=== PATIENT | male | born 1965 | race Caucasian/White ===

== ENCOUNTER 2020-11-28 11:20 | Emergency (ER) | payer OTHER, SELFPAY ==
--- NOTE | ~2020-11-28 | XR_ITS ---
EXAMINATION: XR chest 1V portable EXAM DATE: 11/28/2020 12:40 INDICATION: Shortness of breath. TECHNIQUE: Portable AP frontal chest x-ray was obtained. There is no prior study for comparison. FINDINGS: Small amount of ill-defined bilateral mid lung zone acute airspace disease suspected. Recom mend considering COVID pneumonia given community prevalence. No pneumothorax or pleural effusion. Car diomediastinal silhouette is normal. Patient has diffuse idiopathic skeletal hyperostosis (DISH). IMPRESSION: Suspect small amount of ill-defined acute airspace disease, clinical correlation for poss ible COVID pneumonia. Reviewed, dictated and finalized at location B. IAGE SETTER IMPRESSION: Suspect small amount of ill-defined acute airspace disease, clinica l correlation for possible COVID pneumonia.
[2020-11-28 11:31] VITALS: BP 135/78; PULSE 74; RESP 12; TEMP 36.8; O2SAT 97
[2020-11-28] MEDS: SODIUM CHLORIDE 0.9% IV 1,000 ML 999 ML IV CONT (11:56)
[2020-11-28 11:58] LABS: Alveolar/Arterial O2 Gradient 41.4 mmHg; Base Excess ABG 0.1 mEq/l (+/-2.0); Carboxyhemoglobin 0.5 % THb (0-2.0); Fractional Inspired Oxygen 21 %; HCO3 ABG 22.9 mEq/l (22.0-26.0); Methemoglobin ABG 0.2 %THb (0-1.5); Oxygen Content ABG 18.5 %vol (16.0-22.0); Oxygen Saturation ABG 95.2 % (95.0-100.0); Oxyhemoglobin 93.8 % THb (90.0-100.0); PO2 FiO2 Ratio Arterial Blood 3.33 %; Reduced Hemoglobin 5.5 %THb (0-5.0); pH ABG 7.473 (7.350-7.450)
[2020-11-28 11:59] LABS: Device ROOM AIR; Modified Allen's Test Pass; Site Drawn RIGHT RADIAL
--- NOTE | 2020-11-28 12:03 | WPDEDEXPGENP ---
HPI - General Ped General Chief complaint: Fever Stated complaint: covid+, wants checked out Time Seen by Provider: 11/28/20 11:28 Source: patient Mode of arrival: ambulatory Limitations: no limitations Nursing Documentation: reviewed/agree History of Present Illness HPI narrative: Patient is a 55-year-old male who presents to emergency department for evaluation of fatigue nonproductive cough and fevers with positive Covid testing on the 18 patient notes that his family members of all improved and that he is the only one that remains ill patient. Patient notes a couple loose stools but denies any vomiting patient denies chest pain patient was concerned that he had a low reading on his pulse oximeter at home. On arrival patient does not appear to be uncomfortable or distressed Related Data Allergies Allergy/AdvReac Type Severity Reaction Status Date / Time No Known Allergies Allergy Verified 11/28/20 11:35 Pediatric Review of Systems : All systems ED: reviewed and negative except as stated PMFSH Past Medical History Medical History COVID-19 Obesity (BMI 30.0-34.9) Tear of medial meniscus of right knee Social History Social History Smoking status: Never smoker Gender identity (if verbalized by the patient): Male Pediatric Exam Narrative: Physical exam: GENERAL: Well-appearing, well-nourished, and in no acute distress. HEAD: Normocephalic, atraumatic. EYES: PERRLA and EOMI. ENT: Nares clear, no rhinorrhea or epistaxis. Mucous membranes moist. CHEST: Clear to auscultation. No respiratory distress. No wheezes rales or rhonchi. Slight crackles in the lower lung HEART: Regular rate and rhythm. No murmur heard. Normal peripheral pulses. ABDOMEN: Soft, nontender, nondistended EXTREMITIES: Normal range of motion. No edema. SKIN: Warm, dry, no rash. NEURO: No focal deficits. Alert and oriented x3. Cranial nerves II through XII grossly intact PSYCH: Normal mood and affect. Course Course Emergency Course: Patient is a 55-year-old male who presented with Covid was evaluated in the emergency department no hypoxemia minimal infiltrates no high risk changes in the blood work or imaging felt appropriate for outpatient reevaluation. Patient aware of discussion with primary care. ABCs intact. Vital signs intact. Consultations Consultation #1: Discussed case with physician contact lens assistant and primary care doctor's office who will follow patient in clinic Date: 11/28/20 Time: 13:50 Vital Signs Vital signs: Vital Signs Temperature 98.3 F 11/28/20 11:31 Pulse Rate 74 11/28/20 11:31 Respiratory Rate 12 11/28/20 11:31 Blood Pressure 135/78 11/28/20 11:31 Pulse Oximetry 97 11/28/20 11:31 Temperature 98.3 F 11/28/20 11:31 Pulse Rate 70 11/28/20 13:22 Respiratory Rate 20 11/28/20 13:22 Blood Pressure 129/70 11/28/20 13:22 Pulse Oximetry 97 11/28/20 13:22 Medical Decision Making Vital Signs Vital Signs: Vital Signs Temperature 98.3 F 11/28/20 11:31 Pulse Rate 74 11/28/20 11:31 Respiratory Rate 12 11/28/20 11:31 Blood Pressure 135/78 11/28/20 11:31 Pulse Oximetry 97 11/28/20 11:31 Temperature 98.3 F 11/28/20 11:31 Pulse Rate 70 11/28/20 13:22 Respiratory Rate 20 11/28/20 13:22 Blood Pressure 129/70 11/28/20 13:22 Pulse Oximetry 97 11/28/20 13:22 Lab Data Result diagrams: 11/28/20 11:57 11/28/20 11:58 Labs: Lab Results 11/28/20 11/28/20 11/28/20 Range/Units 11:55 11:57 11:57 WBC 9.3 (4.5-10.0) K/mm3 RBC 4.77 (4.6-6.20) M/mm3 Hgb 14.0 (14.0-18.0) g/dL Hct 40.3 L (42.0-52.0) % MCV 84.5 (80-100) fl MCH 29.4 (26-34) pg MCHC 34.7 (32-36) g/dl RDW 13.3 (11.5-14.5) % Plt Count 348 (150-375) k/mm3 MPV 9.1 (7.4-10.4) fl Immature Gran % (Auto) 0.2 (
--- NOTE | 2020-11-28 12:06 | ECG_ITS ---
Measurements Intervals [place] Rate: 69 P: 11 CA: 156 QRS: 26 QRSD: 88 T: 20 QT: 399 QTc: 430 Interpretive Statements SINUS RHYTHM INCOMPLETE RIGHT BUNDLE BRANCH BLOCK BORDERLINE T WAVE ABNORMALITY- INFERIOR LEADS BASELINE WANDER- V1-V3, V5-V6 BORDERLINE ECG Electronically Signed On 11-28-2020 13:02:56 POST MANAGER by Felix Posada D.O.
[2020-11-28 12:11] LABS: Basophils Percent Auto 0.1 % (0.2-1.2); Eosinophils Absolute Auto 0.1 K/mm3 (0-0.3); Eosinophils Percent Auto 0.8 % (0-4.4); Hematocrit 40.3 % (42.0-52.0); Immature Granulocyte Absolute 0.02 K/mm3 (0.00-0.031); Immature Granulocyte Percent A 0.2 % (0-0.5); Lymphocytes Percent Auto 19.3 % (18.3-44.2); Mean Corpuscular HGB Conc 34.7 g/dl (32-36); Mean Corpuscular Hemoglobin 29.4 pg (26-34); Mean Corpuscular Volume 84.5 fl (80-100); Mean Platelet Volume 9.1 fl (7.4-10.4); Monocytes Absolute Auto 1.1 K/mm3 (0.1-0.6); Monocytes Percent Auto 11.9 % (2.6-8.5); Neutrophils Absolute Auto 6.3 K/mm3 (1.3-6.7); Neutrophils Percent Auto 67.7 % (45.5-73.1); Platelet Count Result 348 k/mm3 (150-375); Red Blood Count 4.77 M/mm3 (4.6-6.20); Red Cell Distribution Width 13.3 % (11.5-14.5); White Blood Count 9.3 K/mm3 (4.5-10.0)
[2020-11-28 12:20] LABS: Prothrombin Time 13.9 Seconds (11.1-14.7)
[2020-11-28 12:25] VITALS: BP 129/76; PULSE 67; RESP 18; O2SAT 96
[2020-11-28 12:26] LABS: Lactic Acid Reflex 1.1 mmol/L (0.7-2.1)
[2020-11-28 12:26] LABS: Alanine Aminotransferase 33 U/L (4-50); Potassium 3.7 mmol/L (3.4-5.0)
[2020-11-28 12:30] LABS: Alkaline Phosphatase 82 U/L (38-126); Anion Gap 10 mmol/L (8-16); Aspartate Amino Transferase 40 U/L (17-59); Bilirubin,Total 0.5 mg/dL (0.2-1.3); Blood Urea Nitrogen 10 mg/dL (9-20); Carbon Dioxide 25 mmol/L (22-30); Chloride 101 mmol/L (98-107); Estimated CRCL calculation 119 ml/min; Estimated Glomerular Filt Rate > 60; Glucose 103 mg/dL (75-110); Sodium 136 mmol/L (137-145)
[2020-11-28 12:44] LABS: CRP 13.9 mg/dL (<1.0)
[2020-11-28 13:22] VITALS: BP 129/70; PULSE 70; RESP 20; O2SAT 97
[2020-11-28 14:10] VITALS: BP 138/85; PULSE 73; O2SAT 97
== END 2020-11-28 14:14 | disposition home or self-care (01) ==
PROVIDERS: Emergency Medicine Emergency Medical Services; Emergency Provider Emergency Medicine; PCP Family Medicine
DX: U07.1 COVID-19 (principal); E66.9 Obesity, unspecified; Z68.31 Body mass index [BMI] 31.0-31.9, adult
CPT/HCPCS: 36415; 36600; 71045; 80053; 82375; 82805; 83050; 83605; 85025; 85610; 85730; 86140; 87040; 93005; 96360; 99283; J7030

== ENCOUNTER 2023-01-04 09:15 | Outpatient (CLI) | payer SELFPAY | END 2023-01-04 09:16 | disposition home or self-care (01) | LOC: ANHAUDIO 09:16 | PROVIDERS: PCP Family Medicine; Visit Provider Otolaryngology | DX: H93.19 Tinnitus, unspecified ear (principal) | CPT/HCPCS: 92557; 92567 ==

== ENCOUNTER 2023-07-26 01:15 | Day surgery (SDC) | payer OTHER, SELFPAY ==
[2023-07-15 11:30] VITALS: BMI 31.6
[2023-07-26 08:09] VITALS: BP 152/75; PULSE 59; RESP 20; TEMP 35.9; O2SAT 97; BMI 32.2
[2023-07-26] MEDS: LACTATED RINGERS 1,000 ML 150 ML IV CONT (08:33)
--- NOTE | 2023-07-26 08:44 | P.HP_ITS ---
History of Present Illness History of Present Illness Consent: Risks, benefits, and alternatives have been discussed and questions answered. Patient agrees to proceed with procedure. Chief complaint: neoplasm screening Narrative: Kimani Burns is a 58 year old male Presents for screening colonoscopy. Patient's current weight appetite and bowel movements are normal. Patient denies abdominal pain. He has had no bleeding. Family history noncontributory. Previous colonoscopy 10 years ago was unremarkable. Review of Systems Review of Systems: Review of systems noncontributory. [facility] Past Medical History Medical History COVID-19 Obesity (BMI 30.0-34.9) Tear of medial meniscus of right knee Family History Family History Father Melanoma Social History Social History Smoking status: Never smoker Alcohol intake: current Drinks per week: 2 Substance use: never Lack of Transportation: No Lack of Food: Sometimes True Current Housing: I Have Housing Concerned About Future Housing: No Difficulty Paying Gas/Electric Bills: No Difficulty Paying for Meds: No Currently Unemployed: No Education: Bachelor's Degree Difficulty w/ Childcare or Family Care: No Living arrangements: with family Gender identity (if verbalized by the patient): Male Spiritual care concerns: No Meds Home Medications and Allergies Home Medications Medication Instructions Recorded Confirmed Type ergocalciferol (vitamin D2) 1,250 See Rx Instructions .Route 01/14/23 07/15/23 Rx mcg (50,000 unit) capsule .COMPLEX #13 caps atorvastatin 10 mg tablet (Lipitor) 10 mg PO QHS #90 tabs 03/12/23 07/15/23 Rx levothyroxine 112 mcg tablet 112 mcg PO DAILY #90 tabs 07/16/23 07/26/23 Rx (Synthroid) Allergies Allergy/AdvReac Type Severity Reaction Status Date / Time No Known Allergies Allergy Verified 07/15/23 11:27 Vital Signs Vital Signs - 24 hr 07/26/23 08:09 Temperature 96.7 F L Pulse Rate 59 L Respiratory Rate 20 Blood Pressure 152/75 H Pulse Oximetry 97 Oxygen Delivery Room Air Exam Narrative: Physical exam reveals patient to be alert. Vital signs stable. HEENT exam is unremarkable. Patient is anicteric. Lungs are clear to auscultation and percussion. Heart is without murmur or extra sounds. Abdomen bowel sounds are present soft nontender with no organomegaly. Digital external rectal exam is normal. Assessment and Plan Assessment and plan (1) Colon cancer screening: Code(s): Z12.11 - Encounter for screening for malignant neoplasm of colon Status: Acute Assessment and Plan: Patient presents for screening colonoscopy. Appears to be at average risk for colon polyps.
--- NOTE | 2023-07-26 08:55 | WPDANESEPPF ---
Anes - Initial Pre Proc Eval Procedure: Operation Date: 07/26/23 09:00 Proposed Procedures p Screening Colonoscopy - Ventura Poon MD Date/Time: 07/26/23 08:55 Surgeon: Ventura Poon MD Pre Op Diagnosis: neoplasm screening Patient Data Age: 58 Gender: M Height: 1.78 m Weight: 102 kg Last Vital Signs Temp 35.9 C L 07/26/23 08:09 Pulse 59 L 07/26/23 08:09 Resp 20 07/26/23 08:09 BP 152/75 H 07/26/23 08:09 Pulse Ox 97 07/26/23 08:09 O2 Del Method Room Air 07/26/23 08:09 Allergies Allergy/AdvReac Type Severity Reaction Status Date / Time No Known Allergies Allergy Verified 07/15/23 11:27 Home Medications Medication Instructions Recorded Confirmed Type ergocalciferol (vitamin D2) 1,250 See Rx Instructions .Route 01/14/23 07/15/23 Rx mcg (50,000 unit) capsule .COMPLEX #13 caps atorvastatin 10 mg tablet (Lipitor) 10 mg PO QHS #90 tabs 03/12/23 07/15/23 Rx levothyroxine 112 mcg tablet 112 mcg PO DAILY #90 tabs 07/16/23 07/26/23 Rx (Synthroid) Patient hx anesthesia problems: none Family hx anesthesia problems: none Results Review: All pre-operative results and documents have been reviewed as part of the pre-operative evaluation. [facility] Past Medical History Medical History COVID-19 Obesity (BMI 30.0-34.9) Tear of medial meniscus of right knee Family History Family History Father Melanoma Social History Social History Smoking status: Never smoker Alcohol intake: current Drinks per week: 2 Substance use: never Lack of Transportation: No Lack of Food: Sometimes True Current Housing: I Have Housing Concerned About Future Housing: No Difficulty Paying Gas/Electric Bills: No Difficulty Paying for Meds: No Currently Unemployed: No Education: Bachelor's Degree Difficulty w/ Childcare or Family Care: No Living arrangements: with family Gender identity (if verbalized by the patient): Male Spiritual care concerns: No Anes - Eval Final PreProcedure Day of Procedure 07/26/23 08:55 Patient weight: obese Heart: regular rate and rhythm Lungs: clear to auscultation Airway: Mallampati scale class II Neurological: alert and oriented Last oral intake: >/= 8 hours ASA classification: II Emergent: no Anesthetic plan: proceed Anesthesia type and monitoring: general GIVS and standard monitoring Results Review: All pre-operative results and documents have been reviewed as part of the pre-operative evaluation. Informed Consent: The patient's anesthetic plan and its attendant risks and benefits were discussed with the patient/family/POA. Questions were solicited and answers provided to the satisfaction of the patient/family/POA.
[2023-07-26 09:13] VITALS: BP 91/51; PULSE 69; RESP 13; O2SAT 99
[2023-07-26 09:23] VITALS: BP 107/49; PULSE 63; RESP 19; O2SAT 99
[2023-07-26 09:33] VITALS: BP 107/49; PULSE 65; RESP 20; O2SAT 99
== END 2023-07-26 09:43 | disposition home or self-care (01) ==
PROVIDERS: PCP Family Medicine; Visit Provider Internal Medicine Gastroenterology
PROC: 0DJD8ZZ Inspection of Lower Intestinal Tract, Via Natural or Artificial Opening Endoscopic (ICD-10-PCS; CPT 45378; principal; 2023-07-26 09:00)
DX: Z12.11 Encounter for screening for malignant neoplasm of colon (principal); K64.8 Other hemorrhoids; E66.9 Obesity, unspecified; Z68.32 Body mass index [BMI] 32.0-32.9, adult
CPT/HCPCS: 45378; J2704; J7120